=== PATIENT | male | born 1975 | race Caucasian/White ===

== ENCOUNTER → 2024-10-29 | Outpatient (CLI) | payer OTHER ==
[~2024-10-29] MED LIST: HYDACE5 PO; Monodox100 MG PO; NAPR500 PO
== END | disposition home or self-care (01) ==
LOC: LAB SHORT 15:07 → LAB 15:07
DX: L02.422 Furuncle of left axilla (principal)
CPT/HCPCS: 87070; 87075; 87077; 87147; 87186; 87205

== ENCOUNTER 2024-12-02 00:31 | Observation (INO) | payer OTHER ==
[~2024-12-02] VITALS: Ht 177.8 cm; Wt 93.0 kg
[2024-12-02] MEDS ORDERED: CefTRIAXone Sodium 1,000 MG in NS 50 ML IV ONE (01:45)
[2024-12-02] MEDS ORDERED: NS 1,000 ML IV SCH ×2 (01:50→04:00)
[2024-12-02] MEDS ORDERED: Diphth,Pertuss(Acell),Tet Vac 0.5 ML VIAL IM ONE (01:50)
[2024-12-02] MEDS ORDERED: Lidocaine/Tetracaine/Epinephr 3 ML GEL SYRINGE TOP ONE (01:50)
[2024-12-02 01:54] LABS: BASOPHILS ABSOLUTE AUTO 0.04 K/mm3 (0.00-0.23); BASOPHILS PERCENT AUTO 0 % (0-2); EOSINOPHILS ABSOLUTE AUTO 0.36 K/mm3 (0.00-0.68); EOSINOPHILS PERCENT AUTO 4 % (0-6); Hematocrit 40.8 % (37.0-53.0); Hemoglobin 13.7 g/dL (13.5-17.5); IMMATURE GRAN ABSOLUTE AUTO 0.09 K/mm3 (0.00-0.10); IMMATURE GRAN PERCENT AUTO 1 % (0-1); LYMPHOCYTES PERCENT AUTO 31 % (21-46); MONOCYTES ABSOLUTE AUTO 0.78 K/mm3 (0.16-1.47); MONOCYTES PERCENT AUTO 8 % (4-13); Mean Corpuscular HGB 29.3 pg (26.0-34.0); Mean Corpuscular HGB Conc 33.6 g/dL (31.5-36.5); Mean Corpuscular Volume 87 fL (80-100); NEUTROPHILS ABSOLUTE AUTO 5.36 K/mm3 (1.96-9.15); NEUTROPHILS PERCENT AUTO 56 % (41-73); RDW Coefficient Variation 12.6 % (11.7-14.2); RDW Standard Deviation 40.2 fL (35.1-46.3); Red Blood Cell Count 4.68 M/mm3 (4.30-5.90); White Blood Cell Count 9.63 K/mm3 (4.00-11.30)
[2024-12-02 02:02] LABS: Albumin, Blood 3.7 g/dL (3.4-5.0); Bilirubin, Total 0.3 mg/dL (0.1-1.0); Bun/Creatinine Ratio 22.1 (12.0-20.0); Globulin, Blood 3.7 g/dL (2.2-4.0); Potassium, Blood 3.8 mmol/L (3.5-5.5); Total Protein, Blood 7.4 g/dL (6.4-8.2)
[2024-12-02] MEDS ORDERED: Vancomycin HCL 2,000 MG in NS 500 ML IV ONE (02:20)
[2024-12-02 02:37] LABS: Platelet Count 190 K/mm3 (150-400)
[2024-12-02] MEDS ORDERED: FLU VACC TS2024-25(6MOS UP)/PF 45 MCG/0.5 ML SYRINGE IM ONE (03:50)
[2024-12-02] MEDS ORDERED: Ondansetron 4 MG TAB PO PRN (03:55)
[2024-12-02] MEDS ORDERED: Acetaminophen 325 MG TABLET PO PRN (04:10)
[2024-12-02 08:12] LABS: BASOPHILS ABSOLUTE AUTO 0.03 K/mm3 (0.00-0.23); BASOPHILS PERCENT AUTO 0 % (0-2); EOSINOPHILS ABSOLUTE AUTO 0.39 K/mm3 (0.00-0.68); EOSINOPHILS PERCENT AUTO 4 % (0-6); Hematocrit 37.3 % (37.0-53.0); Hemoglobin 12.5 g/dL (13.5-17.5); IMMATURE GRAN ABSOLUTE AUTO 0.03 K/mm3 (0.00-0.10); IMMATURE GRAN PERCENT AUTO 0 % (0-1); LYMPHOCYTES ABSOLUTE AUTO 3.02 K/mm3 (0.84-5.20); LYMPHOCYTES PERCENT AUTO 34 % (21-46); MONOCYTES ABSOLUTE AUTO 1.05 K/mm3 (0.16-1.47); MONOCYTES PERCENT AUTO 12 % (4-13); Mean Corpuscular HGB 29.2 pg (26.0-34.0); Mean Corpuscular HGB Conc 33.5 g/dL (31.5-36.5); Mean Corpuscular Volume 87 fL (80-100); NEUTROPHILS ABSOLUTE AUTO 4.42 K/mm3 (1.96-9.15); NEUTROPHILS PERCENT AUTO 50 % (41-73); Platelet Count 243 K/mm3 (150-400); RDW Coefficient Variation 12.8 % (11.7-14.2); RDW Standard Deviation 40.6 fL (35.1-46.3); Red Blood Cell Count 4.28 M/mm3 (4.30-5.90); White Blood Cell Count 8.94 K/mm3 (4.00-11.30)
[2024-12-02 08:21] LABS: C-REACTIVE PROTEIN, EXT RANGE <0.290 mg/dL (0.000-0.300)
[2024-12-02 08:23] LABS: Alanine Aminotransfer (ALT/SGP 20 U/L (12-78); Albumin/Globulin Ratio 0.9 (0.8-1.8); Alk Phos 71 U/L (50-136); Anion Gap 9 mmol/L (3-11); Aspartate Aminotrans (AST/SGOT 13 U/L (12-37); Bilirubin, Total 0.5 mg/dL (0.1-1.0); Blood Urea Nitrogen 18 mg/dL (8-24); Bun/Creatinine Ratio 18.4 (12.0-20.0); CO2, Blood 25 mmol/L (21-32); Calcium, Blood 8.5 mg/dL (8.5-10.1); Chloride, Blood 109 mmol/L (98-108); Creatinine, Blood 0.98 mg/dL (0.60-1.20); Globulin, Blood 3.3 g/dL (2.2-4.0); Glomerular Filtration Rate 93 (60-); Glucose, Blood 101 mg/dL (70-99); Potassium, Blood 3.7 mmol/L (3.5-5.5); Sodium, Blood 139 mmol/L (136-145); Total Protein, Blood 6.3 g/dL (6.4-8.2)
[2024-12-02] MEDS ORDERED: Enoxaparin 40 MG/0.4 ML SYR SC SCH (09:00)
[2024-12-02] MEDS ORDERED: Nicotine 21 MG PATCH TOP SCH (09:00)
[2024-12-02] MEDS ORDERED: VISBIOME 112.51 EACH PO (10:44)
[2024-12-02] MEDS ORDERED: BACTRIM DS TAB1 EAC6 PO (10:45)
[2024-12-02 11:35] VITALS: BP 128/85
[2024-12-02] MEDS ORDERED: Ampicillin Sod/Sulbactam Sod 3 GM in NS 100 ML IV SCH (12:00)
== END 2024-12-02 23:00 | disposition home or self-care (01) ==
LOC: ER 00:31 → ERHOLD 00:32
PROVIDERS: Emergency Medicine; Student in an Organized Health Care Education/Training Program; ADMIT Internal Medicine
DX: L03.114 Cellulitis of left upper limb (principal); E86.0 Dehydration; Z23 Encounter for immunization; F17.210 Nicotine dependence, cigarettes, uncomplicated; Z86.19 Personal history of other infectious and parasitic diseases
CPT/HCPCS: 10060; 36415; 73090; 80053; 83605; 85025; 86140; 87040; 90471; 90715; 96365; 96372; 96375; 99285-25; G0378; J0696; J3370; J7030; J7040